=== PATIENT | male | born 1945 | race Caucasian/White ===

== ENCOUNTER 2018-10-22 22:50 | Inpatient (IN) | payer MEDICARE, MEDICAID ==
[~2018-10-22] VITALS: Ht 162.6 cm; Wt 66.7 kg
[2018-10-22] MEDS ORDERED: KETOROLAC 30MG/ML VIAL IV STA (23:57)
[2018-10-22] MEDS ORDERED: ONDANSETRON HCL 4MG/2ML INJ IV STA (23:57)
[2018-10-23] VITALS (7 sets, daily range): BP systolic 100–138; BP diastolic 51–75
[2018-10-23 00:13] LABS: BASOPHILS % 0.6 % (0.0-2.0); EOSINOPHILS % 0.2 % (0.0-5.0); HEMOGLOBIN. 10.6 g/dL (14.0-18.0); LYMPHOCYTES % 14.2 % (20.0-50.0); MEAN CORPUSCULAR VOLUME 84.5 fL (80.0-94.0); MEAN PLATELET VOLUME 7.5 fl (7.4-10.4); MONOCYTES % 8.9 % (2.0-8.0); NEUTROPHILS % 76.1 % (40.0-76.0); PLATELET 253 x1000/uL (130-400); RED BLOOD CELL COUNT 3.79 mill/uL (4.7-6.1); RED CELL DISTRIBUTION WIDTH 14.1 % (11.6-14.6)
[2018-10-23 00:19] LABS: CHLORIDE 94 mEq/L (98-107)
[2018-10-23] MEDS ORDERED: SODIUM CHLORIDE 0.9% 1,000 ML IV ONE (01:12)
[2018-10-23 01:48] LABS: CLARITY URINE CLEAR (CLEAR); COLOR URINE DARK YELLOW (YELLOW); KETONES URINE NEGATIVE (NEGATIVE); LEUKOCYTE ESTERASE URINE NEGATIVE (NEGATIVE); NITRITE URINE NEGATIVE (NEGATIVE); OCCULT BLOOD URINE NEGATIVE (NEGATIVE); PROTEIN URINE NEGATIVE (NEGATIVE); SPECIFIC GRAVITY URINE 1.015 (1.005-1.030)
[2018-10-23] MEDS ORDERED: HYDROCODONE/ACETAMINOPHEN 5/325MG TABLET PO PRN (04:00)
[2018-10-23] MEDS: DEXTROSE 50% WATER 50ML SYRINGE IV PRN ×2 (05:50→12:18)
[2018-10-23] MEDS: BLOOD SUGAR DIAGNOSTIC STRIP TEST SCH ×4 (05:59→20:50)
[2018-10-23] MEDS: INSULIN LISPRO 100 UNITS/ML SUBCUT SCH ×4 (06:55→20:59)
[2018-10-23 08:00] LABS: BASOPHILS % 0.2 % (0.0-2.0); EOSINOPHILS % 0.9 % (0.0-5.0); HEMATOCRIT. 28.7 % (42.0-52.0); HEMOGLOBIN. 9.5 g/dL (14.0-18.0); LYMPHOCYTES % 15.8 % (20.0-50.0); MEAN CORPUSCULAR HEMOGLOBIN 28.2 pg (28.0-32.0); MEAN CORPUSCULAR VOLUME 85.1 fL (80.0-94.0); MEAN PLATELET VOLUME 8.2 fl (7.4-10.4); MONOCYTES % 10.7 % (2.0-8.0); NEUTROPHILS % 72.4 % (40.0-76.0); PLATELET 225 x1000/uL (130-400); RED BLOOD CELL COUNT 3.38 mill/uL (4.7-6.1); RED CELL DISTRIBUTION WIDTH 14.4 % (11.6-14.6)
[2018-10-23 08:27] LABS: CHLORIDE 100 mEq/L (98-107)
[2018-10-23 08:36] LABS: LDL CHOLESTEROL 74 mg/dL (5-100)
[2018-10-23 08:38] LABS: HDL CHOLESTEROL 46 mg/dL (40-59)
[2018-10-23] MEDS: SODIUM CHLORIDE 0.9% 1,000 ML IV SCH (14:26)
[2018-10-23 14:55] LABS: *AMPHETAMINES SCREEN URINE NEGATIVE (NEGATIVE); *BARBITURATES SCREEN URINE NEGATIVE (NEGATIVE); *BENZODIAZEPINES SCREEN URINE NEGATIVE (NEGATIVE)
[2018-10-23 14:56] LABS: *COCAINE SCREEN URINE NEGATIVE (NEGATIVE); CANNABINOID URINE SCREEN NEGATIVE (NEGATIVE); METHADONE URINE SCREEN NEGATIVE (NEGATIVE); OPIATES URINE SCREEN PRESUMTIVE POSITIVE (NEGATIVE); PHENCYCLIDINE URINE SCREEN NEGATIVE (NEGATIVE)
[2018-10-24] VITALS: BP 137/54
[2018-10-24 04:00] VITALS: BP 132/56
[2018-10-24] MEDS: SODIUM CHLORIDE 0.9% 1,000 ML IV SCH ×2 (05:54→22:11)
[2018-10-24] MEDS: BLOOD SUGAR DIAGNOSTIC STRIP TEST SCH ×4 (05:58→21:29)
[2018-10-24] MEDS: INSULIN LISPRO 100 UNITS/ML SUBCUT SCH ×4 (05:58→22:12)
[2018-10-24 08:00] VITALS: BP 138/51
[2018-10-24 12:00] VITALS: BP 154/61
[2018-10-24 12:02] LABS: BASOPHILS % 0.3 % (0.0-2.0); EOSINOPHILS % 1.9 % (0.0-5.0); HEMATOCRIT. 29.7 % (42.0-52.0); HEMOGLOBIN. 9.9 g/dL (14.0-18.0); LYMPHOCYTES % 20.6 % (20.0-50.0); MEAN CORPUSCULAR HEMOGLOBIN 28.7 pg (28.0-32.0); MEAN CORPUSCULAR VOLUME 85.7 fL (80.0-94.0); MEAN PLATELET VOLUME 8.1 fl (7.4-10.4); MONOCYTES % 11.3 % (2.0-8.0); NEUTROPHILS % 65.9 % (40.0-76.0); PLATELET 247 x1000/uL (130-400); RED BLOOD CELL COUNT 3.46 mill/uL (4.7-6.1); RED CELL DISTRIBUTION WIDTH 14.1 % (11.6-14.6)
[2018-10-24 16:00] VITALS: BP 148/48
[2018-10-24 20:00] VITALS: BP 108/63
[2018-10-25] VITALS (8 sets, daily range): BP systolic 104–164; BP diastolic 65–82
[2018-10-25 00:56] LABS: CREATINE KINASE 80 IU/L (39-308); CREATINE KINASE MB FRACTION < 1.0 ng/mL (0.5-3.6)
[2018-10-25] MEDS: BLOOD SUGAR DIAGNOSTIC STRIP TEST SCH ×4 (06:11→21:18)
[2018-10-25] MEDS: INSULIN LISPRO 100 UNITS/ML SUBCUT SCH ×4 (06:18→21:35)
[2018-10-25] MEDS ORDERED: CLONIDINE 0.1MG TABLET PO PRN (09:00)
[2018-10-25 09:07] LABS: BASOPHILS % 0.7 % (0.0-2.0); EOSINOPHILS % 3.1 % (0.0-5.0); HEMATOCRIT. 29.8 % (42.0-52.0); HEMOGLOBIN. 9.8 g/dL (14.0-18.0); MEAN CORPUSCULAR HEMOGLOBIN 28.4 pg (28.0-32.0); MEAN CORPUSCULAR VOLUME 86.5 fL (80.0-94.0); MONOCYTES % 14.5 % (2.0-8.0); NEUTROPHILS % 55.7 % (40.0-76.0); PLATELET 242 x1000/uL (130-400); RED BLOOD CELL COUNT 3.44 mill/uL (4.7-6.1); RED CELL DISTRIBUTION WIDTH 13.9 % (11.6-14.6)
[2018-10-25 09:21] LABS: CHLORIDE 111 mEq/L (98-107)
[2018-10-25 09:30] LABS: CREATINE KINASE 62 IU/L (39-308)
[2018-10-25 09:34] LABS: CREATINE KINASE MB FRACTION < 1.0 ng/mL (0.5-3.6)
[2018-10-25] MEDS ORDERED: CLONIDINE 0.2MG TABLET PO PRN (12:45)
[2018-10-25] MEDS: ASPIRIN 81MG EC TABLET PO SCH (14:02)
[2018-10-25] MEDS: SODIUM CHLORIDE 0.9% 1,000 ML IV SCH (14:02)
[2018-10-25] MEDS: AMLODIPINE 5MG TABLET PO SCH (21:18)
[2018-10-26] VITALS: BP 139/68
[2018-10-26 04:00] VITALS: BP 121/64
[2018-10-26] MEDS: SODIUM CHLORIDE 0.9% 1,000 ML IV SCH (05:06)
[2018-10-26 06:21] LABS: CHLORIDE 109 mEq/L (98-107)
[2018-10-26 06:26] LABS: BASOPHILS % 0.6 % (0.0-2.0); HEMATOCRIT. 32.1 % (42.0-52.0); HEMOGLOBIN. 10.8 g/dL (14.0-18.0); MEAN CORPUSCULAR HEMOGLOBIN 28.4 pg (28.0-32.0); MEAN CORPUSCULAR VOLUME 84.8 fL (80.0-94.0); MEAN PLATELET VOLUME 8.2 fl (7.4-10.4); MONOCYTES % 10.5 % (2.0-8.0); NEUTROPHILS % 57.9 % (40.0-76.0); PLATELET 261 x1000/uL (130-400); RED BLOOD CELL COUNT 3.79 mill/uL (4.7-6.1); RED CELL DISTRIBUTION WIDTH 13.7 % (11.6-14.6)
[2018-10-26 06:32] LABS: LDL CHOLESTEROL 84 mg/dL (5-100)
[2018-10-26 06:33] LABS: CREATINE KINASE 56 IU/L (39-308)
[2018-10-26 06:34] LABS: HDL CHOLESTEROL 50 mg/dL (40-59)
[2018-10-26] MEDS: BLOOD SUGAR DIAGNOSTIC STRIP TEST SCH ×2 (07:10→12:18)
[2018-10-26] MEDS: INSULIN LISPRO 100 UNITS/ML SUBCUT SCH ×2 (07:40→12:18)
[2018-10-26 08:25] VITALS: BP 104/65
[2018-10-26] MEDS: AMLODIPINE 5MG TABLET PO SCH (09:00)
[2018-10-26] MEDS: ASPIRIN 81MG EC TABLET PO SCH (09:23)
[2018-10-26] MEDS ORDERED: REGADENOSON 0.4 MG/5 ML IV NR (10:00)
[2018-10-26] MEDS ORDERED: REGADENOSON 0.4 MG/5 ML IV ONE (11:13)
[2018-10-26 12:00] VITALS: BP 139/81
[2018-10-26 15:18] VITALS: BP 119/69
== END 2018-10-26 16:52 | disposition home or self-care (01) | DRG 469 ==
LOC: ER 23:12 → 8WST 10-23 01:20 → EDBEDREQ 10-23 01:32 → EDBEDREQTM 10-23 01:32 → ENRESERV 10-23 02:28
PROVIDERS: ADMIT Internal Medicine; ATTEND Internal Medicine
DX: N17.9 Acute kidney failure, unspecified (principal); E11.22 Type 2 diabetes mellitus with diabetic chronic kidney disease; D63.8 Anemia in other chronic diseases classified elsewhere; E78.5 Hyperlipidemia, unspecified; E78.00 Pure hypercholesterolemia, unspecified; I12.9 Hypertensive chronic kidney disease with stage 1 through stage 4 chronic kidney disease, or unspecified chronic kidney disease; N18.9 Chronic kidney disease, unspecified; M54.2 Cervicalgia; I25.10 Atherosclerotic heart disease of native coronary artery without angina pectoris; I44.0 Atrioventricular block, first degree; R00.8 Other abnormalities of heart beat; D72.821 Monocytosis (symptomatic); Z95.1 Presence of aortocoronary bypass graft
CPT/HCPCS: 36415; 71045; 72070; 76770; 78452; 80048; 80061; 80305; 82550; 82553; 82962; 83735; 83880; 84443; 84484; 85379; 93005; 93017; 93306; 93970; 96374; 96375; 99285; A9500; J1815; J1885; J2405; J2785; J7030